=== PATIENT | female | born 1945 | race Caucasian/White ===

== ENCOUNTER 2017-01-31 05:24 | Inpatient (IN) | payer MEDICARE, OTHER ==
[~2017-01-31] VITALS: Ht 170.2 cm; Wt 86.8 kg
[2017-01-31 05:48] LABS: BASOPHIL 0.2 % (0-2); EOSINOPHIL 0 % (0-7); HCT 34.6 % (37.0-47.0); HGB 11.7 g/dl (12.5-16.0); LYMPHOCYTE 8.3 % (15-48); MCH 29.9 pg (25.0-31.0); MCHC 33.8 g/dL (32.0-36.0); MCV 88.5 fL (78.0-100.0); NEUTROPHIL 84.5 % (41-80); PLT 424 K/uL (150-400); RBC 3.91 M/uL (4.20-5.40); RDW 12.4 % (11.5-14.0)
[2017-01-31 06:09] LABS: ALBUMIN 3.6 g/dL (3.4-4.8); BILIRUBIN - TOTAL 0.5 mg/dL (0.1-1.0); CREATININE 0.8 mg/dL (0.5-1.0); GLOBULIN (CALCULATION) 3.1 g/dL (2.2-4.2); POTASSIUM 3.9 mmol/L (3.5-5.1); TOTAL PROTEIN 6.7 g/dL (6.4-8.3)
[2017-01-31 06:13] LABS: LACTIC ACID 1.6 mmol/L (0.5-2.2)
[2017-01-31 06:21] LABS: TROPONIN T < 0.010 ng/mL
[2017-01-31 06:22] LABS: INR 1.15 (0.9-1.2); PROTHROMBIN TIME 14.3 SECONDS (11.7-14.0); PTT 35.3 SECONDS (23.2-31.4)
[2017-01-31 06:23] LABS: D-DIMER 1.11 ug/mLFEU (0.00-0.41); PRO-BNP 1165 pg/mL (0-125)
[2017-02-01 05:38] LABS: HCT 31.9 % (37.0-47.0); HGB 10.6 g/dl (12.5-16.0); MCH 30.2 pg (25.0-31.0); MCHC 33.2 g/dL (32.0-36.0); MCV 90.9 fL (78.0-100.0); MPV 9.2 fL (6.0-9.5); RBC 3.51 M/uL (4.20-5.40); RDW 12.5 % (11.5-14.0); WBC 19.9 K/uL (4.0-10.5)
[2017-02-01 05:59] LABS: CREATININE 0.7 mg/dL (0.5-1.0)
[2017-02-01 13:18] LABS: BILIRUBIN NEGATIVE (NEGATIVE); BLOOD TRACE-LYSED Ery/uL (NEGATIVE); CLARITY CLEAR (CLEAR); COLOR YELLOW (YELLOW); GLUCOSE (U) NORMAL (NORMAL); KETONE (U) NEGATIVE (NEGATIVE); LEUKOCYTES NEGATIVE Leu/uL (NEGATIVE); NITRITE NEGATIVE (NEGATIVE); PROTEIN TRACE (LOW) mg/dL (NEGATIVE); SPECIFIC GRAVITY 1.025 (1.001-1.030); UROBILINOGEN 0.2 mg/dL (0.2-1.0)
[2017-02-01 17:00] LABS: TROPONIN T < 0.010 ng/mL
[2017-02-01 17:16] LABS: HCT 31.3 % (37.0-47.0); HGB 10.3 g/dl (12.5-16.0); MCH 29.7 pg (25.0-31.0); MCHC 32.9 g/dL (32.0-36.0); MCV 90.2 fL (78.0-100.0); MPV 9.6 fL (6.0-9.5); RBC 3.47 M/uL (4.20-5.40); RDW 12.4 % (11.5-14.0); WBC 19.9 K/uL (4.0-10.5)
[2017-02-01 22:29] LABS: TROPONIN T < 0.010 ng/mL
[2017-02-02 04:08] LABS: HCT 30.8 % (37.0-47.0); HGB 10.3 g/dl (12.5-16.0); MCH 29.7 pg (25.0-31.0); MCHC 33.4 g/dL (32.0-36.0); MCV 88.8 fL (78.0-100.0); MPV 9.2 fL (6.0-9.5); RBC 3.47 M/uL (4.20-5.40); RDW 12.3 % (11.5-14.0); WBC 15.3 K/uL (4.0-10.5)
[2017-02-02 04:23] LABS: TROPONIN T < 0.010 ng/mL
[2017-02-02 04:25] LABS: CREATININE 0.8 mg/dL (0.5-1.0); POTASSIUM 3.7 mmol/L (3.5-5.1)
[2017-02-03 05:00] LABS: BASOPHIL 0.1 % (0-2); EOSINOPHIL 3.1 % (0-7); HCT 29.1 % (37.0-47.0); HGB 9.9 g/dl (12.5-16.0); LYMPHOCYTE 10.1 % (15-48); MCH 30.4 pg (25.0-31.0); MCV 89.3 fL (78.0-100.0); MONOCYTE 6.9 % (0-12); MPV 9.4 fL (6.0-9.5); NEUTROPHIL 79.8 % (41-80); PLT 433 K/uL (150-400); RBC 3.26 M/uL (4.20-5.40); RDW 12.3 % (11.5-14.0); WBC 14.8 K/uL (4.0-10.5)
[2017-02-03 05:19] LABS: CREATININE 0.6 mg/dL (0.5-1.0); POTASSIUM 3.9 mmol/L (3.5-5.1)
[2017-02-03 09:29] LABS: IRON 38 ug/dL (44-196); IRON % SATURATION 19 %SAT (20-50); TIBC (TOTAL IRON + UIBC) 196 U/L (228-428); UIBC 158 ug/dL (112-346)
[2017-02-03 09:48] LABS: FOLIC ACID (SERUM) > 20.0 ng/mL (5.6-45.8)
[2017-02-04 05:46] LABS: BASOPHIL 0.2 % (0-2); EOSINOPHIL 2.7 % (0-7); HCT 28.6 % (37.0-47.0); HGB 9.7 g/dl (12.5-16.0); LYMPHOCYTE 14.2 % (15-48); MCHC 33.9 g/dL (32.0-36.0); MCV 88.5 fL (78.0-100.0); MONOCYTE 7.6 % (0-12); MPV 9.5 fL (6.0-9.5); NEUTROPHIL 75.3 % (41-80); PLT 446 K/uL (150-400); RBC 3.23 M/uL (4.20-5.40); RDW 12.3 % (11.5-14.0); WBC 11.3 K/uL (4.0-10.5)
[2017-02-04 05:55] LABS: CREATININE 0.5 mg/dL (0.5-1.0); MAGNESIUM 1.87 mg/dL (1.40-2.10); POTASSIUM 3.3 mmol/L (3.5-5.1)
[2017-02-04 06:10] LABS: FT4 (FREE T4) 1.29 ng/dL (0.93-1.70); TSH (THYROID STIM HORMONE) 1.16 uIU/mL (0.270-4.200)
[2017-02-05 05:25] LABS: BASOPHIL 0.2 % (0-2); EOSINOPHIL 2.5 % (0-7); HCT 29.8 % (37.0-47.0); HGB 10.1 g/dl (12.5-16.0); LYMPHOCYTE 14.4 % (15-48); MCH 29.7 pg (25.0-31.0); MCHC 33.9 g/dL (32.0-36.0); MCV 87.6 fL (78.0-100.0); MONOCYTE 7.3 % (0-12); MPV 8.9 fL (6.0-9.5); NEUTROPHIL 75.6 % (41-80); PLT 515 K/uL (150-400); RDW 12.4 % (11.5-14.0); WBC 12.9 K/uL (4.0-10.5)
[2017-02-05 05:42] LABS: CREATININE 0.5 mg/dL (0.5-1.0); MAGNESIUM 1.81 mg/dL (1.40-2.10); POTASSIUM 3.2 mmol/L (3.5-5.1)
[2017-02-06 06:15] LABS: BASOPHIL 0.1 % (0-2); EOSINOPHIL 2.4 % (0-7); HCT 31.2 % (37.0-47.0); HGB 10.5 g/dl (12.5-16.0); MCHC 33.7 g/dL (32.0-36.0); MCV 89.1 fL (78.0-100.0); MONOCYTE 8.9 % (0-12); MPV 9.2 fL (6.0-9.5); NEUTROPHIL 76.6 % (41-80); PLT 624 K/uL (150-400); RDW 12.7 % (11.5-14.0); WBC 14.8 K/uL (4.0-10.5)
[2017-02-06 06:36] LABS: CREATININE 0.5 mg/dL (0.5-1.0); POTASSIUM 3.6 mmol/L (3.5-5.1)
[2017-02-06 15:56] LABS: BILIRUBIN NEGATIVE (NEGATIVE); BLOOD NEGATIVE Ery/uL (NEGATIVE); CLARITY CLEAR (CLEAR); COLOR YELLOW (YELLOW); GLUCOSE (U) NORMAL (NORMAL); KETONE (U) NEGATIVE (NEGATIVE); LEUKOCYTES TRACE Leu/uL (NEGATIVE); NITRITE NEGATIVE (NEGATIVE); PROTEIN NEGATIVE (NEGATIVE); SPECIFIC GRAVITY 1.015 (1.001-1.030); UROBILINOGEN 0.2 mg/dL (0.2-1.0)
[2017-02-06 16:13] LABS: BACTERIA TRACE
== END 2017-02-06 15:36 | DRG 871 ==
LOC: FER 05:24 → FTCU 08:27 → FMS 02-02 13:00
PROVIDERS: Emergency Medicine Emergency Medical Services; Internal Medicine; ADMIT Internal Medicine
DX: A41.9 Sepsis, unspecified organism (principal); J18.9 Pneumonia, unspecified organism; J96.01 Acute respiratory failure with hypoxia; G25.3 Myoclonus; T36.0X5A Adverse effect of penicillins, initial encounter; I10 Essential (primary) hypertension; Z95.0 Presence of cardiac pacemaker; E78.5 Hyperlipidemia, unspecified; D72.829 Elevated white blood cell count, unspecified; E86.0 Dehydration; R55 Syncope and collapse; Z79.82 Long term (current) use of aspirin
CPT/HCPCS: 36415; 36600; 70450; 71010; 71275; 80048; 80053; 80200; 80202; 81001; 81003; 82550; 82553; 82607; 82746; 82803; 83540; 83550; 83605; 83735; 83880; 84145; 84439; 84443; 84484; 85025; 85044; 85379; 85610; 85730; 87040; 87804; 87899; 92526; 93005; 94668; 97110; 97116; 97162; 97166; 97530; 97530-GP; 97535; C9113; J0131; J0456; J1335; J1644; J1885; J1956; J2060; J2270; J2405; J2543; J2916; J3260; J3360; J3370; Q9967

== ENCOUNTER 2017-02-06 15:36 | Inpatient (IN) | payer MEDICARE, OTHER ==
[~2017-02-06] VITALS: Ht 167.6 cm; Wt 75.4 kg
[2017-02-11 06:05] LABS: BASOPHIL 0.4 % (0-2); EOSINOPHIL 3.9 % (0-7); HCT 33.9 % (37.0-47.0); HGB 11.2 g/dl (12.5-16.0); LYMPHOCYTE 25.1 % (15-48); MCH 30.2 pg (25.0-31.0); MCV 91.4 fL (78.0-100.0); MONOCYTE 12.6 % (0-12); PLT 819 K/uL (150-400); RBC 3.71 M/uL (4.20-5.40); RDW 13.5 % (11.5-14.0); WBC 9.6 K/uL (4.0-10.5)
[2017-02-11 13:44] LABS: BILIRUBIN NEGATIVE (NEGATIVE); BLOOD 1+ Ery/uL (NEGATIVE); CLARITY CLEAR (CLEAR); COLOR YELLOW (YELLOW); GLUCOSE (U) NORMAL (NORMAL); KETONE (U) NEGATIVE (NEGATIVE); LEUKOCYTES NEGATIVE Leu/uL (NEGATIVE); NITRITE NEGATIVE (NEGATIVE); PROTEIN NEGATIVE (NEGATIVE); SPECIFIC GRAVITY 1.015 (1.001-1.030); UROBILINOGEN 0.2 mg/dL (0.2-1.0); pH 6.5 (5.0-9.0)
[2017-02-11 13:46] LABS: BACTERIA 1+
[2017-02-13 05:27] LABS: BASOPHIL 0.4 % (0-2); EOSINOPHIL 4.7 % (0-7); HCT 35.2 % (37.0-47.0); HGB 11.7 g/dl (12.5-16.0); LYMPHOCYTE 22.7 % (15-48); MCH 30.2 pg (25.0-31.0); MCHC 33.2 g/dL (32.0-36.0); MCV 90.7 fL (78.0-100.0); MONOCYTE 12.9 % (0-12); MPV 8.9 fL (6.0-9.5); NEUTROPHIL 59.3 % (41-80); PLT 876 K/uL (150-400); RBC 3.88 M/uL (4.20-5.40); RDW 13.3 % (11.5-14.0)
[2017-02-15 06:14] LABS: BASOPHIL 0.4 % (0-2); EOSINOPHIL 4.5 % (0-7); HCT 35.8 % (37.0-47.0); HGB 11.9 g/dl (12.5-16.0); LYMPHOCYTE 18.7 % (15-48); MCH 30.3 pg (25.0-31.0); MCHC 33.2 g/dL (32.0-36.0); MCV 91.1 fL (78.0-100.0); MONOCYTE 9.3 % (0-12); MPV 8.9 fL (6.0-9.5); NEUTROPHIL 67.1 % (41-80); PLT 948 K/uL (150-400); RBC 3.93 M/uL (4.20-5.40); RDW 13.1 % (11.5-14.0); WBC 11.6 K/uL (4.0-10.5)
--- NOTE | 2017-02-15 15:09 | NUR ---
1508- PT LEFT WITH DAUGHTER ON PASS- SEE CONSENT AND ORDER
[2017-02-16 15:38] LABS: HCT 35.9 % (37.0-47.0); HGB 11.8 g/dl (12.5-16.0); MCH 30.3 pg (25.0-31.0); MCHC 32.9 g/dL (32.0-36.0); MCV 92.1 fL (78.0-100.0); RBC 3.9 M/uL (4.20-5.40); RDW 12.9 % (11.5-14.0); RETICULOCYTE COUNT 0.9 % (1.0-2.0); WBC 13.6 K/uL (4.0-10.5)
[2017-02-16 15:45] LABS: ALBUMIN 3.9 g/dL (3.4-4.8); BILIRUBIN - TOTAL 0.3 mg/dL (0.1-1.0); CREATININE 0.7 mg/dL (0.5-1.0); GLOBULIN (CALCULATION) 2.5 g/dL (2.2-4.2); POTASSIUM 4.7 mmol/L (3.5-5.1); TOTAL PROTEIN 6.4 g/dL (6.4-8.3)
[2017-02-16 16:03] LABS: VITAMIN D (25-OH) 36.4 ng/mL (20.0-)
[2017-02-16 16:06] LABS: FOLIC ACID (SERUM) 15.9 ng/mL (5.6-45.8)
--- NOTE | 2017-02-17 09:56 | NUR ---
PT. AND DAUGHTER ATTENDED CARE MTG. PT. REQUESTED TO D/C HOME THIS DATE. PT. HAS A ROLLING WALKER AND A CANE. PT. REQUESTED [facility]. AT [facility]. FIRST APPT. IS 02/18/17 @ 9:15 A.M. D/C NOTICE AND QUESTIONNAIRE GIVEN.
--- NOTE | 2017-02-17 12:59 | NUR ---
DISCUSSED DISCHARGE INSTRUCTIONS WITH PATIENT AND DAUGHTER. PT IN STABLE CONDITION
== END 2017-02-17 13:15 | disposition home or self-care (01) | DRG 871 ==
LOC: FSNU 15:36
PROVIDERS: Internal Medicine Hematology & Oncology; Nurse Practitioner Adult Health; ADMIT Internal Medicine
DX: A41.9 Sepsis, unspecified organism (principal); J18.9 Pneumonia, unspecified organism; G25.3 Myoclonus; T36.0X5A Adverse effect of penicillins, initial encounter; I10 Essential (primary) hypertension; Z95.0 Presence of cardiac pacemaker; E78.5 Hyperlipidemia, unspecified; D72.829 Elevated white blood cell count, unspecified; E86.0 Dehydration; R55 Syncope and collapse; Z79.82 Long term (current) use of aspirin
CPT/HCPCS: 36415; 71010; 80053; 81001; 82306; 82607; 82728; 82746; 83540; 83550; 83615; 84165; 85025; 85044; 97110; 97116; 97162; 97165; 97530; 97530-GP; 97535; 97537; J1956

== ENCOUNTER 2021-10-22 21:04 | Day surgery (SDCO) | payer MEDICARE, OTHER ==
[~2021-10-22] VITALS: Ht 170.2 cm; Wt 76.9 kg
[~2021-10-22 21:04] MED LIST: ANTIVERT25 MG PO; ASPIRIN325 M1 PO; AUGMENTIN250 MG PO; BISOPROLOL-HCT1 EAC1 PO; CARDURA2 MG PO; CARDURA4 MG PO; CETIRIZINE HCL10 MG PO; DIOVAN320 MG PO; FLONASE ALLER15.8 ML; HYDREA500 MG PO; NEXIUM 24HR20 M1 PO; NEXIUM40 MG PO; NORVASC5 MG PO; ONDANSETRON ODT4 MG PO; POTASSIUM99 M1 PO; SINGULAIR10 MG PO; TRAZODONE HCL50 MG PO; VIBRAMYCIN100 MG PO; ZOCOR20 MG PO
[2021-10-22 23:00] LABS: BILIRUBIN NEGATIVE (NEGATIVE); BLOOD 2+ Ery/uL (NEGATIVE); CLARITY CLEAR (CLEAR); COLOR YELLOW (YELLOW); GLUCOSE (U) NORMAL (NORMAL); LEUKOCYTES TRACE Leu/uL (NEGATIVE); NITRITE NEGATIVE (NEGATIVE); PROTEIN NEGATIVE (NEGATIVE); SPECIFIC GRAVITY 1.025 (1.001-1.030)
[2021-10-22 23:15] LABS: BACTERIA TRACE
[2021-10-22 23:24] LABS: CORONAVIRUS 2019 SARS-COV-2 NEGATIVE (NEGATIVE); INFLUENZA A NAA NEGATIVE (NEGATIVE)
[2021-10-22 23:33] LABS: BASOPHIL 0.2 % (0-2); EOSINOPHIL 1.1 % (0-7); HCT 35.6 % (37.0-47.0); HGB 12.2 g/dl (12.5-16.0); LYMPHOCYTE 12.4 % (15-48); MCH 32.8 pg (25.0-31.0); MCHC 34.3 g/dL (32.0-36.0); MCV 95.7 fL (78.0-100.0); MONOCYTE 6.4 % (0-12); MPV 8.8 fL (6.0-9.5); NEUTROPHIL 79.4 % (41-80); NRBC 0; PLT 290 K/uL (150-400); RBC 3.72 M/uL (4.20-5.40); RDW 11.3 % (11.5-14.0); WBC 6.4 K/uL (4.0-10.5)
[2021-10-22 23:53] LABS: LACTIC ACID 1.2 mmol/L (0.4-1.9)
[2021-10-23] LABS: ALBUMIN 3.4 g/dL (3.4-5.0); BILIRUBIN - TOTAL 0.4 mg/dL (0.2-1.0); BUN/CREAT RATIO (CALC) 19.2 RATIO; CREATININE 0.73 mg/dL (0.51-0.95); GLOBULIN (CALCULATION) 3.3 g/dL; POTASSIUM 3.3 mmol/L (3.5-5.1); TOTAL PROTEIN 6.7 g/dL (6.4-8.2)
[2021-10-23] MEDS ORDERED: BISOPROLOL-HCT1 EACH PO (05:32)
[2021-10-23] MEDS ORDERED: BUSPIRONE HCL15 MG PO (05:33)
[2021-10-23] MEDS ORDERED: CARDURA2 MG PO (05:34)
[2021-10-23] MEDS ORDERED: HYDREA500 MG PO (05:35)
[2021-10-23] MEDS ORDERED: TRAZODONE 100M100 MG PO (05:36)
[2021-10-23 06:50] LABS: BASOPHIL 0.4 % (0-2); EOSINOPHIL 0.4 % (0-7); HCT 32.2 % (37.0-47.0); HGB 11.2 g/dl (12.5-16.0); LYMPHOCYTE 10.6 % (15-48); MCH 32.9 pg (25.0-31.0); MCHC 34.8 g/dL (32.0-36.0); MCV 94.7 fL (78.0-100.0); MONOCYTE 5.8 % (0-12); MPV 8.7 fL (6.0-9.5); NEUTROPHIL 82.4 % (41-80); NRBC 0; PLT 267 K/uL (150-400); RDW 11.1 % (11.5-14.0); WBC 5.2 K/uL (4.0-10.5)
[2021-10-23 07:25] LABS: BUN/CREAT RATIO (CALC) 18.1 RATIO; CREATININE 0.72 mg/dL (0.51-0.95); POTASSIUM 3.3 mmol/L (3.5-5.1)
[2021-10-23] MEDS ORDERED: CEFDINIR300 MG PO (14:32)
[2021-10-25] MEDS ORDERED: CARDURA2 MG PO (04:13)
== END 2021-10-23 15:30 | disposition home or self-care (01) ==
LOC: FER 21:04 → FMS 10-23 03:13
PROVIDERS: Emergency Medicine Emergency Medical Services; Nurse Practitioner Acute Care; Physician Assistant; ADMIT Internal Medicine
DX: N39.0 Urinary tract infection, site not specified (principal); E87.6 Hypokalemia; E86.0 Dehydration; R55 Syncope and collapse; H61.21 Impacted cerumen, right ear; I10 Essential (primary) hypertension; I25.10 Atherosclerotic heart disease of native coronary artery without angina pectoris; R49.0 Dysphonia; D69.6 Thrombocytopenia, unspecified; E78.5 Hyperlipidemia, unspecified; K21.9 Gastro-esophageal reflux disease without esophagitis; D64.9 Anemia, unspecified; F32.A Depression, unspecified; F41.9 Anxiety disorder, unspecified; F03.90 Unspecified dementia, unspecified severity, without behavioral disturbance, psychotic disturbance, mood disturbance, and anxiety; Z95.0 Presence of cardiac pacemaker; Z90.710 Acquired absence of both cervix and uterus; Z20.822 Contact with and (suspected) exposure to COVID-19; Z77.22 Contact with and (suspected) exposure to environmental tobacco smoke (acute) (chronic); Z79.82 Long term (current) use of aspirin; Z79.899 Other long term (current) drug therapy; Z88.8 Allergy status to other drugs, medicaments and biological substances; Z82.3 Family history of stroke; Z82.49 Family history of ischemic heart disease and other diseases of the circulatory system; Z80.1 Family history of malignant neoplasm of trachea, bronchus and lung
CPT/HCPCS: 36415; 70450; 71045; 80048; 80053; 81001; 83605; 84145; 84439; 84443; 84484; 85025; 86140; 87040; 87088; 93005; G0378; J0696; J1650; J1885; J2405; J7030; U0002